=== PATIENT | male | born 1995 | race Two or more races ===

== ENCOUNTER 2019-12-03 17:03 | Inpatient (IN) | payer OTHER ==
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
[2019-12-03] MEDS ORDERED: BISMUTH SUBSALICYLATE 524 MG/30 ML UD PO PRN (17:47)
[2019-12-03] MEDS ORDERED: MAG HYDROX/AL HYDROX/SIMETH 30 ML UNIT-DOSE CUP PO PRN (17:47)
[2019-12-03] MEDS ORDERED: ONDANSETRON *ODT* 4 MG TABLET SL ONE (17:47)
[2019-12-03] MEDS ORDERED: MAGNESIUM CITRATE 300 ML BOTTLE PO PRN (17:47)
[2019-12-03] MEDS ORDERED: IBUPROFEN 400 MG TABLET (FP) PO PRN (17:47)
[2019-12-03] MEDS ORDERED: NICOTINE POLACRILEX 2 MG GUM BUC PRN (17:47)
[2019-12-03] MEDS ORDERED: MAGNESIUM HYDROX 2400MG/30ML ORAL SUSPENSION 30 ML CUP PO PRN (17:47)
[2019-12-03] MEDS ORDERED: ACETAMINOPHEN 325 MG TABLET (FP) PO PRN ×2 (17:47)
[2019-12-03] MEDS ORDERED: MENTHOL/PHENOL 1 EACH UD MM PRN (17:47)
[2019-12-03] MEDS ORDERED: cloNIDine HCL 0.1 MG TABLET PO PRN (17:47)
[2019-12-03 18:04] VITALS: BMI 35.4
[2019-12-03] MEDS ORDERED: METHADONE HCL 10 MG TABLET (FOR DETOX USE ONLY) PO ONE (19:15)
[2019-12-03] MEDS ORDERED: MELATONIN 5 MG TABLETS PO SCH (22:00)
[2019-12-03] MEDS: THIAMINE HCL 100 MG TABLET (FP) PO SCH (23:37)
[2019-12-04] MEDS: hydrOXYzine PAMOATE 25 MG CAPSULE (FP) PO PRN ×2 (05:53→22:16)
[2019-12-04] MEDS: METHOCARBAMOL 500 MG TABLET PO PRN (05:53)
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
--- NOTE | 2019-12-04 09:24 | EKG ---
Test Reason : Blood Pressure : / mmHG Vent. Rate : 056 BPM Atrial Rate : 056 BPM P-R Int : 096 ms QRS Dur : 088 ms QT Int : 358 ms P-R-T Axes : -01 044 043 degrees QTc Int : 345 ms SINUS BRADYCARDIA WITH SHORT WI OTHERWISE NORMAL ECG NO PREVIOUS ECGS AVAILABLE Confirmed by Pawan Mooney MD ([id number]) on 12/04/2019 9:23:39 AM Referred By: Confirmed By:Pawan Mooney MD
[2019-12-04] MEDS ORDERED: METHADONE HCL 5 MG TABLET (FOR DETOX USE ONLY) PO ONE (10:00)
[2019-12-04] MEDS: PRENATAL VITAMINS W/ FOLIC ACID TABLET (FP) PO SCH (10:14)
[2019-12-04] MEDS: NICOTINE 14 MG/24 HOURS TOPICAL PATCH TD SCH (10:14)
[2019-12-04] MEDS ORDERED: PNEUMOCOCCAL 23 VACCINE 0.5 ML VIAL IM ONE (12:00)
[2019-12-04] MEDS ORDERED: PNEUMOC 13-VAL CONJ-DIP CRM/PF 0.5 ML DISP.SYRIN IM ONE (12:00)
[2019-12-04 12:14] LABS: HEMATOCRIT 39.9 % (35.4-49); HEMOGLOBIN 12.6 GM/dL (11.7-16.9); MCH 26.1 pg (25.7-33.7); MCHC 31.6 g/dl (32.0-35.9); MEAN CELL VOLUME 82.6 fl (80-96); MEAN PLT VOLUME 9.2 fl (7.5-11.1); PLATELET COUNT 212 K/MM3 (134-434); RBC 4.83 M/mm3 (4.00-5.60); RDW 17.2 % (11.9-15.9); WHITE BLOOD COUNT 9.4 K/mm3 (4.0-10.0)
[2019-12-04 12:29] LABS: BILIRUBIN,TOTAL 0.8 mg/dL (0.2-1); BLOOD UREA NITROGEN 13.2 mg/dL (7-18); CALCIUM 8.5 mg/dL (8.5-10.1); CREATININE 0.8 mg/dL (0.55-1.3); POTASSIUM 4.5 mmol/L (3.5-5.1); TOT PROT 6.4 g/dl (6.4-8.2)
--- NOTE | 2019-12-04 12:47 | PN ---
BHS COWS - Scale Resting Pulse: 0= [place] 80 or Below Sweatin= No chills or Flushing Restless Observation: 1= Difficult to Sit Still Pupil Size: 0= Normal to Room Light Bone or Joint Aches: 1= Mild Discomfort Runny Nose/ Eye Tearin= Nasal Congestion GI Upset > 30mins: 1= Stomach Cramp Tremor Observation of Outstretched Hands: 2= Slight Tremor Visible Yawning Observation: 1= 1-2x During Session Anxiety or Irritability: 2=Irritable/Anxious Goose Flesh Skin: 0=Smooth Skin COWS Score: 9 BHS Progress Note (SOAP) Subjective: alert,irritable,anxious,interrupted sleep,stutter speech,aching pain Objective: 12/04/19 12:44 Vital Signs Temperature 97.3 F L 12/04/19 08:51 Pulse Rate 61 12/04/19 08:51 Respiratory Rate 18 12/04/19 08:51 Blood Pressure 104/64 12/04/19 08:51 O2 Sat by Pulse Oximetry (%) 98 12/04/19 06:22 12/04/19 12:45 Laboratory Last Values WBC 9.4 K/mm3 (4.0-10.0) 12/04/19 08:30 RBC 4.83 M/mm3 (4.00-5.60) 12/04/19 08:30 Hgb 12.6 GM/dL (11.7-16.9) 12/04/19 08:30 Hct 39.9 % (35.4-49) 12/04/19 08:30 MCV 82.6 fl (80-96) 12/04/19 08:30 MCH 26.1 pg (25.7-33.7) 12/04/19 08:30 MCHC 31.6 g/dl (32.0-35.9) L 12/04/19 08:30 RDW 17.2 % (11.9-15.9) H 12/04/19 08:30 Plt Count 212 K/MM3 (134-434) 12/04/19 08:30 MPV 9.2 fl (7.5-11.1) 12/04/19 08:30 Sodium 142 mmol/L (136-145) 12/04/19 08:30 Potassium 4.5 mmol/L (3.5-5.1) 12/04/19 08:30 Chloride 108 mmol/L (98-107) H 12/04/19 08:30 Carbon Dioxide 27 mmol/L (21-32) 12/04/19 08:30 Anion Gap 7 MMOL/L (8-16) L 12/04/19 08:30 BUN 13.2 mg/dL (7-18) 12/04/19 08:30 Creatinine 0.8 mg/dL (0.55-1.3) 12/04/19 08:30 Est GFR (CKD-EPI)AfAm 144.91 12/04/19 08:30 Est GFR (CKD-EPI)NonAf 125.03 12/04/19 08:30 Random Glucose 88 mg/dL (74-106) 12/04/19 08:30 Calcium 8.5 mg/dL (8.5-10.1) 12/04/19 08:30 Total Bilirubin 0.8 mg/dL (0.2-1) 12/04/19 08:30 AST 14 U/L (15-37) L 12/04/19 08:30 ALT 22 U/L (13-61) 12/04/19 08:30 Alkaline Phosphatase 60 U/L (45-117) 12/04/19 08:30 Total Protein 6.4 g/dl (6.4-8.2) 12/04/19 08:30 Albumin 3.0 g/dl (3.4-5.0) L 12/04/19 08:30 Valproic Acid 39.2 ug/mL (50-100) L 12/04/19 09:00 Assessment: 12/04/19 12:46 withdrawal symptom Plan: continue detox methadone regimen,dr Hull consultation appreciated
[2019-12-04] MEDS: DIVALPROEX NA *ER* EXTEND REL 500 MG TABLET.SA (FP) PO SCH ×2 (13:39→22:18)
[2019-12-04] MEDS: MELATONIN 5 MG TABLETS PO PRN (22:17)
[2019-12-04] MEDS: THIAMINE HCL 100 MG TABLET (FP) PO SCH (22:17)
[2019-12-05] MEDS ORDERED: METHADONE HCL 10 MG TABLET (FOR DETOX USE ONLY) PO ONE (10:00)
[2019-12-05] MEDS: PRENATAL VITAMINS W/ FOLIC ACID TABLET (FP) PO SCH (10:23)
[2019-12-05] MEDS: DIVALPROEX NA *ER* EXTEND REL 500 MG TABLET.SA (FP) PO SCH ×2 (10:23→22:38)
[2019-12-05] MEDS: NICOTINE 14 MG/24 HOURS TOPICAL PATCH TD SCH (10:23)
[2019-12-05] MEDS: METHOCARBAMOL 500 MG TABLET PO PRN (10:25)
--- NOTE | 2019-12-05 13:49 | PN ---
BHS COWS - Scale Resting Pulse: 0= [place] 80 or Below Sweatin= No chills or Flushing Restless Observation: 0= Sits Still Pupil Size: 0= Normal to Room Light Bone or Joint Aches: 1= Mild Discomfort Runny Nose/ Eye Tearin= Nasal Congestion GI Upset > 30mins: 1= Stomach Cramp Tremor Observation of Outstretched Hands: 2= Slight Tremor Visible Yawning Observation: 0= None Anxiety or Irritability: 2=Irritable/Anxious Goose Flesh Skin: 0=Smooth Skin COWS Score: 7 BHS Progress Note (SOAP) Subjective: alert,irritable,anxious,interrupted sleep,tremor,pain in the body and back Objective: 12/05/19 13:48 Vital Signs Temperature 97.3 F L 12/05/19 08:35 Pulse Rate 70 12/05/19 08:35 Respiratory Rate 20 12/05/19 08:35 Blood Pressure 132/83 12/05/19 08:35 O2 Sat by Pulse Oximetry (%) 100 12/05/19 05:18 Assessment: 12/05/19 13:48 withdrawal symptom Plan: continue detox methadon regimen,discharge in am
[2019-12-05] MEDS ORDERED: ALBUTEROL SO4 HFA INHALER IH PRN (13:52)
[2019-12-05] MEDS: THIAMINE HCL 100 MG TABLET (FP) PO SCH (22:38)
[2019-12-05] MEDS: MELATONIN 5 MG TABLETS PO PRN (22:39)
[2019-12-06] MEDS ORDERED: METHADONE HCL 5 MG TABLET (FOR DETOX USE ONLY) PO ONE (06:00)
[2019-12-06 07:15] VITALS: BP 120/62; PULSE 55; TEMP 96.5
[2019-12-06] MEDS: PRENATAL VITAMINS W/ FOLIC ACID TABLET (FP) PO SCH (09:59)
[2019-12-06] MEDS: NICOTINE 14 MG/24 HOURS TOPICAL PATCH TD SCH (09:59)
[2019-12-06] MEDS: DIVALPROEX NA *ER* EXTEND REL 500 MG TABLET.SA (FP) PO SCH (09:59)
--- NOTE | 2019-12-06 10:10 | PN ---
BHS COWS - Scale Resting Pulse: 0= [place] 80 or Below Sweatin= No chills or Flushing Restless Observation: 0= Sits Still Pupil Size: 0= Normal to Room Light Bone or Joint Aches: 0= None Runny Nose/ Eye Tearin= None GI Upset > 30mins: 0= None Tremor Observation of Outstretched Hands: 0= None Yawning Observation: 0= None Anxiety or Irritability: 1=Feels Anxious/Irritable Goose Flesh Skin: 0=Smooth Skin COWS Score: 1 BHS Progress Note (SOAP) Subjective: alert,no complaint Objective: 12/06/19 10:03 Vital Signs Temperature 96.5 F L 12/06/19 05:38 Pulse Rate 55 L 12/06/19 05:38 Respiratory Rate 18 12/06/19 05:38 Blood Pressure 120/62 12/06/19 05:38 O2 Sat by Pulse Oximetry (%) 98 12/06/19 05:38 Assessment: 12/06/19 10:03 detox completed,no withdrawal symptom Plan: stable for discharge today,he will go home and stay with his family,patient declined rehab,stated he will go to work, follow up with out patient program positive direction
--- NOTE | 2019-12-06 10:17 | DS ---
[facility] Detox Discharge Summary Admission Date: 12/03/19 Discharge Date: 12/06/19 - History Present History: Cannabis Dependence, Opioid Dependence Additional Comments: alert,oriented x 3 ambulation on the unit lung clear on auscultation bilaterally abdomen soft,no distension,o pain no tenderness no withdrawal symptom stable for discharge to go home ,he lives with his parent,will go to work patient declined rehab, follow up with after care program as arrangement positive direction total time of discharge is 35 minutes Pertinent Past History: bipolar disorder nicotine dependence asthma - Physical Exam Results Vital Signs: Vital Signs Temperature 96.5 F L 12/06/19 05:38 Pulse Rate 55 L 12/06/19 05:38 Respiratory Rate 18 12/06/19 05:38 Blood Pressure 120/62 12/06/19 05:38 O2 Sat by Pulse Oximetry (%) 98 12/06/19 05:38 Pertinent Admission Physical Exam Findings: withdrawal signs and symptom Laboratory Last Values WBC 9.4 K/mm3 (4.0-10.0) 12/04/19 08:30 RBC 4.83 M/mm3 (4.00-5.60) 12/04/19 08:30 Hgb 12.6 GM/dL (11.7-16.9) 12/04/19 08:30 Hct 39.9 % (35.4-49) 12/04/19 08:30 MCV 82.6 fl (80-96) 12/04/19 08:30 MCH 26.1 pg (25.7-33.7) 12/04/19 08:30 MCHC 31.6 g/dl (32.0-35.9) L 12/04/19 08:30 RDW 17.2 % (11.9-15.9) H 12/04/19 08:30 Plt Count 212 K/MM3 (134-434) 12/04/19 08:30 MPV 9.2 fl (7.5-11.1) 12/04/19 08:30 Sodium 142 mmol/L (136-145) 12/04/19 08:30 Potassium 4.5 mmol/L (3.5-5.1) 12/04/19 08:30 Chloride 108 mmol/L (98-107) H 12/04/19 08:30 Carbon Dioxide 27 mmol/L (21-32) 12/04/19 08:30 Anion Gap 7 MMOL/L (8-16) L 12/04/19 08:30 BUN 13.2 mg/dL (7-18) 12/04/19 08:30 Creatinine 0.8 mg/dL (0.55-1.3) 12/04/19 08:30 Est GFR (CKD-EPI)AfAm 144.91 12/04/19 08:30 Est GFR (CKD-EPI)NonAf 125.03 12/04/19 08:30 Random Glucose 88 mg/dL (74-106) 12/04/19 08:30 Calcium 8.5 mg/dL (8.5-10.1) 12/04/19 08:30 Total Bilirubin 0.8 mg/dL (0.2-1) 12/04/19 08:30 AST 14 U/L (15-37) L 12/04/19 08:30 ALT 22 U/L (13-61) 12/04/19 08:30 Alkaline Phosphatase 60 U/L (45-117) 12/04/19 08:30 Total Protein 6.4 g/dl (6.4-8.2) 12/04/19 08:30 Albumin 3.0 g/dl (3.4-5.0) L 12/04/19 08:30 Valproic Acid 39.2 ug/mL (50-100) L 12/04/19 09:00 Syphilis Serology Non-reactive (NONREACTIVE) 12/04/19 08:30 COVID-19 (JANE) Not detected (Not Detected) 12/03/19 19:33 Vital Signs Temperature 96.5 F L 12/06/19 05:38 Pulse Rate 55 L 12/06/19 05:38 Respiratory Rate 18 12/06/19 05:38 Blood Pressure 120/62 12/06/19 05:38 O2 Sat by Pulse Oximetry (%) 98 12/06/19 05:38 - Treatment Hospital Course: Detox Protocol Followed, Detoxed Safely, Responded well, Discharged Condition Good Patient has Accepted a Rehab Referral to: declined - Medication Discharge Medications: Ambulatory Orders Alprazolam [Xanax] 1 mg PO BID PRN 12/03/19 Divalproex Sodium [Depakote ER] 500 mg PO BID 12/03/19 - Diagnosis (1) Cannabis dependence Current Visit: Yes Status: Acute (2) Opioid dependence with withdrawal Current Visit: Yes Status: Acute (3) Asthma Current Visit: Yes Status: Chronic Qualifiers: Asthma severity: mild Asthma persistence: intermittent (4) Bipolar disorder Current Visit: Yes Status: Chronic Qualifiers: Active/Remission status: currently active Current episode severity: unspecified - AMA Did Patient Leave Against Medical Advice: No
--- NOTE | 2019-12-06 10:20 | PN ---
DAVID Progress Note Note: addendum patient has his medications at home
== END 2019-12-06 10:05 | disposition home or self-care (01) | DRG 773 ==
LOC: YASAS 17:03 → Y6N 18:53
PROVIDERS: ADMIT Allergy & Immunology; ATTEND Allergy & Immunology
PROC: HZ2ZZZZ Detoxification Services for Substance Abuse Treatment (ICD-10-PCS; principal; 2019-12-03)
DX: F11.23 Opioid dependence with withdrawal (principal); F12.20 Cannabis dependence, uncomplicated; F17.210 Nicotine dependence, cigarettes, uncomplicated; F31.9 Bipolar disorder, unspecified; F19.280 Other psychoactive substance dependence with psychoactive substance-induced anxiety disorder; J45.20 Mild intermittent asthma, uncomplicated; Z62.810 Personal history of physical and sexual abuse in childhood
CPT/HCPCS: 36415; 80053; 80164; 85027; 86780; 90732; 93005; 93010; G0009; U0003

== ENCOUNTER 2020-04-13 12:49 | Inpatient (IN) | payer OTHER ==
[2020-04-13 16:49] VITALS: BMI 74.9
[2020-04-13] MEDS ORDERED: ACETAMINOPHEN 325 MG TABLET (FP) PO PRN ×2 (16:49)
[2020-04-13] MEDS ORDERED: chlordiazePOXIDE HCL 25 MG CAPSULE PO PRN (16:49)
[2020-04-13] MEDS ORDERED: BISMUTH SUBSALICYLATE 524 MG/30 ML UD PO PRN (16:49)
[2020-04-13] MEDS ORDERED: METHADONE HCL 10 MG TABLET (FOR DETOX USE ONLY) PO ONE (16:49)
[2020-04-13] MEDS ORDERED: cloNIDine HCL 0.1 MG TABLET PO PRN (16:49)
[2020-04-13] MEDS ORDERED: MAGNESIUM HYDROX 2400MG/30ML ORAL SUSPENSION 30 ML CUP PO PRN (16:49)
[2020-04-13] MEDS ORDERED: NICOTINE POLACRILEX 2 MG GUM BUC PRN (16:49)
[2020-04-13] MEDS ORDERED: MENTHOL/PHENOL 1 EACH UD MM PRN (16:49)
[2020-04-13] MEDS ORDERED: ONDANSETRON *ODT* 4 MG TABLET SL PRN (16:49)
[2020-04-13] MEDS ORDERED: MAG HYDROX/AL HYDROX/SIMETH 30 ML UNIT-DOSE CUP PO PRN (16:49)
[2020-04-13] MEDS ORDERED: MAGNESIUM CITRATE 300 ML BOTTLE PO PRN (16:49)
[2020-04-13] MEDS: NICOTINE 21 MG/24 HOURS TOPICAL PATCH TD SCH (18:28)
[2020-04-13] MEDS: chlordiazePOXIDE HCL 25 MG CAPSULE PO SCH ×2 (18:28→22:15)
[2020-04-13] MEDS: hydrOXYzine PAMOATE 25 MG CAPSULE (FP) PO SCH ×2 (18:31→22:14)
[2020-04-13] MEDS: METHOCARBAMOL 500 MG TABLET PO PRN (18:33)
[2020-04-13] MEDS ORDERED: ALBUTEROL SO4 HFA INHALER IH ONE (18:35)
[2020-04-13] MEDS ORDERED: ALBUTEROL SO4 HFA INHALER IH PRN (18:41)
[2020-04-13] MEDS ORDERED: MELATONIN 5 MG TABLETS PO SCH (22:00)
[2020-04-13] MEDS: THIAMINE HCL 100 MG TABLET (FP) PO SCH (22:14)
[2020-04-14] MEDS: chlordiazePOXIDE HCL 25 MG CAPSULE PO SCH ×4 (05:44→22:09)
[2020-04-14] MEDS: hydrOXYzine PAMOATE 25 MG CAPSULE (FP) PO SCH ×5 (05:44→22:09)
[2020-04-14] MEDS ORDERED: METHADONE HCL 10 MG TABLET (FOR DETOX USE ONLY) ONE (08:44)
[2020-04-14] MEDS ORDERED: METHADONE HCL 5 MG TABLET (FOR DETOX USE ONLY) ONE (08:44)
[2020-04-14] MEDS ORDERED: METHADONE (DETOX) 20 MG, METHADONE (DETOX) 5 MG PO ONE (10:00)
[2020-04-14] MEDS: NICOTINE 21 MG/24 HOURS TOPICAL PATCH TD SCH (10:26)
[2020-04-14] MEDS: PRENATAL VITAMINS W/ FOLIC ACID TABLET (FP) PO SCH (10:26)
[2020-04-14] MEDS: METHOCARBAMOL 500 MG TABLET PO PRN (10:27)
[2020-04-14] MEDS: DIVALPROEX SODIUM 500 MG TABLET E.C. PO SCH ×2 (10:27→22:09)
[2020-04-14 10:54] LABS: HEMATOCRIT 40.3 % (35.4-49); HEMOGLOBIN 12.9 GM/dL (11.7-16.9); MCH 25.8 pg (25.7-33.7); MCHC 32.1 g/dl (32.0-35.9); MEAN CELL VOLUME 80.3 fl (80-96); MEAN PLT VOLUME 9.5 fl (7.5-11.1); PLATELET COUNT 305 K/MM3 (134-434); RBC 5.01 M/mm3 (4.00-5.60); RDW 16.3 % (11.9-15.9); WHITE BLOOD COUNT 7.7 K/mm3 (4.0-10.0)
[2020-04-14 10:56] LABS: POTASSIUM 4.3 mmol/L (3.5-5.1)
[2020-04-14 10:59] LABS: CALCIUM 9.5 mg/dL (8.5-10.1)
[2020-04-14 11:00] LABS: ALBUMIN 3.4 g/dl (3.4-5.0)
[2020-04-14 11:03] LABS: CREATININE 0.8 mg/dL (0.55-1.3)
[2020-04-14 11:04] LABS: BILIRUBIN,TOTAL 0.8 mg/dL (0.2-1); TOT PROT 6.8 g/dl (6.4-8.2)
[2020-04-14] MEDS: THIAMINE HCL 100 MG TABLET (FP) PO SCH (22:09)
[2020-04-14] MEDS: MELATONIN 5 MG TABLETS PO PRN (22:10)
[2020-04-15] MEDS: chlordiazePOXIDE HCL 25 MG CAPSULE PO SCH ×4 (05:46→22:10)
[2020-04-15] MEDS: hydrOXYzine PAMOATE 25 MG CAPSULE (FP) PO SCH ×5 (05:46→22:10)
[2020-04-15] MEDS ORDERED: METHADONE HCL 10 MG TABLET (FOR DETOX USE ONLY) PO ONE (10:00)
[2020-04-15] MEDS: METHOCARBAMOL 500 MG TABLET PO PRN (10:19)
[2020-04-15] MEDS: DIVALPROEX SODIUM 500 MG TABLET E.C. PO SCH ×2 (10:19→22:10)
[2020-04-15] MEDS: PRENATAL VITAMINS W/ FOLIC ACID TABLET (FP) PO SCH (10:19)
[2020-04-15] MEDS: NICOTINE 21 MG/24 HOURS TOPICAL PATCH TD SCH (10:20)
[2020-04-15] MEDS: IBUPROFEN 400 MG TABLET (FP) PO PRN (15:02)
[2020-04-15] MEDS: THIAMINE HCL 100 MG TABLET (FP) PO SCH (22:10)
[2020-04-15] MEDS: MELATONIN 5 MG TABLETS PO PRN (22:10)
[2020-04-16] MEDS ORDERED: chlordiazePOXIDE HCL 10 MG CAPSULE PO PRN
[2020-04-16] MEDS: chlordiazePOXIDE HCL 10 MG CAPSULE PO SCH ×4 (05:27→22:07)
[2020-04-16] MEDS: hydrOXYzine PAMOATE 25 MG CAPSULE (FP) PO SCH ×5 (05:27→22:07)
[2020-04-16] MEDS ORDERED: METHADONE HCL 10 MG TABLET (FOR DETOX USE ONLY) ONE (08:30)
[2020-04-16] MEDS ORDERED: METHADONE HCL 5 MG TABLET (FOR DETOX USE ONLY) ONE (08:30)
[2020-04-16] MEDS ORDERED: METHADONE (DETOX) 10 MG, METHADONE (DETOX) 5 MG PO ONE (10:00)
[2020-04-16] MEDS: PRENATAL VITAMINS W/ FOLIC ACID TABLET (FP) PO SCH (10:20)
[2020-04-16] MEDS: DIVALPROEX SODIUM 500 MG TABLET E.C. PO SCH ×2 (10:21→22:07)
[2020-04-16] MEDS: METHOCARBAMOL 500 MG TABLET PO PRN (10:21)
[2020-04-16] MEDS: NICOTINE 21 MG/24 HOURS TOPICAL PATCH TD SCH (10:22)
[2020-04-16] MEDS: LIDOCAINE 5% TOPICAL PATCH TP SCH (11:53)
[2020-04-16] MEDS ORDERED: FLU VACCINE (FLULAVAL) PF 60 MCG/0.5 ML SYRINGE 2020-2021 IM ONE (12:00)
[2020-04-16] MEDS: THIAMINE HCL 100 MG TABLET (FP) PO SCH (22:07)
[2020-04-16] MEDS: LIDOCAINE PATCH REMOVAL MC SCH (22:07)
[2020-04-17] MEDS: hydrOXYzine PAMOATE 25 MG CAPSULE (FP) PO SCH ×5 (05:33→22:30)
[2020-04-17] MEDS: chlordiazePOXIDE HCL 10 MG CAPSULE PO SCH ×2 (05:33→17:14)
[2020-04-17] MEDS: PRENATAL VITAMINS W/ FOLIC ACID TABLET (FP) PO SCH (09:35)
[2020-04-17] MEDS: LIDOCAINE 5% TOPICAL PATCH TP SCH (09:36)
[2020-04-17] MEDS: METHOCARBAMOL 500 MG TABLET PO PRN ×2 (09:36→22:30)
[2020-04-17] MEDS: DIVALPROEX SODIUM 500 MG TABLET E.C. PO SCH ×2 (09:36→22:30)
[2020-04-17] MEDS: NICOTINE 21 MG/24 HOURS TOPICAL PATCH TD SCH (09:36)
[2020-04-17] MEDS ORDERED: METHADONE HCL 10 MG TABLET (FOR DETOX USE ONLY) PO ONE (10:00)
[2020-04-17] MEDS: IBUPROFEN 400 MG TABLET (FP) PO PRN (17:37)
[2020-04-17 21:25] VITALS: TEMP 97.5
[2020-04-17] MEDS: LIDOCAINE PATCH REMOVAL MC SCH (22:30)
[2020-04-17] MEDS: THIAMINE HCL 100 MG TABLET (FP) PO SCH (22:31)
[2020-04-18] MEDS ORDERED: chlordiazePOXIDE HCL 10 MG CAPSULE PO ONE (05:00)
[2020-04-18] MEDS: hydrOXYzine PAMOATE 25 MG CAPSULE (FP) PO SCH (05:44)
[2020-04-18] MEDS ORDERED: METHADONE HCL 5 MG TABLET (FOR DETOX USE ONLY) PO ONE (06:00)
[2020-04-18 09:06] VITALS: BP 111/76; PULSE 85
[2020-04-20 17:48] LABS: HIV INTERPRETATION NEGATIVE (NEGATIVE)
== END 2020-04-18 08:45 | disposition other institution (70) | DRG 773 ==
LOC: YASAS 12:49 → Y3N 17:30
PROVIDERS: ADMIT Allergy & Immunology; ATTEND Allergy & Immunology
PROC: HZ2ZZZZ Detoxification Services for Substance Abuse Treatment (ICD-10-PCS; principal; 2020-04-13)
DX: F11.23 Opioid dependence with withdrawal (principal); F10.230 Alcohol dependence with withdrawal, uncomplicated; F13.20 Sedative, hypnotic or anxiolytic dependence, uncomplicated; F12.20 Cannabis dependence, uncomplicated; F17.210 Nicotine dependence, cigarettes, uncomplicated; F19.282 Other psychoactive substance dependence with psychoactive substance-induced sleep disorder; F19.280 Other psychoactive substance dependence with psychoactive substance-induced anxiety disorder; F31.9 Bipolar disorder, unspecified; F41.9 Anxiety disorder, unspecified; F98.5 Adult onset fluency disorder; Z62.810 Personal history of physical and sexual abuse in childhood
CPT/HCPCS: 36415; 80053; 80164; 85027; 86780; 87389; C9803; G0008; Q2036; U0003

== ENCOUNTER 2021-01-16 02:14 | Emergency (ER) | payer OTHER ==
[2021-01-16 02:34] VITALS: BP 132/75; PULSE 88; TEMP 98.5; BMI 28.3
== END 2021-01-16 02:37 | disposition left against medical advice (07) ==
LOC: JER 02:14
DX: F11.23 Opioid dependence with withdrawal (principal)
CPT/HCPCS: 99281-25

== ENCOUNTER 2021-01-17 09:09 | Inpatient (IN) | payer OTHER ==
[2021-01-17 09:28] VITALS: BMI 33.6
[2021-01-17] MEDS ORDERED: MAGNESIUM CITRATE 300 ML BOTTLE PO PRN (11:09)
[2021-01-17] MEDS ORDERED: BISMUTH SUBSALICYLATE 524 MG/30 ML PO PRN (11:09)
[2021-01-17] MEDS ORDERED: MENTHOL/PHENOL 1 EACH UD MM PRN (11:09)
[2021-01-17] MEDS ORDERED: diazePAM 5 MG TABLET PO PRN (11:09)
[2021-01-17] MEDS ORDERED: ACETAMINOPHEN 325 MG TABLET (FP) PO PRN ×2 (11:09)
[2021-01-17] MEDS ORDERED: cloNIDine HCL 0.1 MG TABLET PO PRN (11:09)
[2021-01-17] MEDS ORDERED: MAGNESIUM HYDROX 2400MG/30ML ORAL SUSPENSION 30 ML CUP PO PRN (11:09)
[2021-01-17] MEDS ORDERED: MAG HYDROX/AL HYDROX/SIMETH 30 ML UNIT-DOSE CUP PO PRN (11:09)
[2021-01-17] MEDS ORDERED: ALBUTEROL SO4 HFA INHALER IH PRN (11:13)
[2021-01-17] MEDS ORDERED: methaDONE HCL 10 MG TABLET (FOR DETOX USE ONLY) PO ONE (12:00)
[2021-01-17] MEDS ORDERED: FLU VACC QS2021-22(6MOS UP)/PF 60 MCG/0.5 ML SYRINGE IM ONE (14:04)
[2021-01-17] MEDS: METHOCARBAMOL 500 MG TABLET PO PRN (15:53)
[2021-01-17] MEDS: diazePAM 5 MG TABLET PO SCH ×2 (17:57→22:10)
[2021-01-17] MEDS ORDERED: MELATONIN 5 MG TABLETS PO SCH (22:00)
[2021-01-17] MEDS: THIAMINE HCL 100 MG TABLET (FP) PO SCH (22:10)
[2021-01-18] MEDS: diazePAM 5 MG TABLET PO SCH ×4 (07:31→22:12)
[2021-01-18] MEDS ORDERED: methaDONE HCL 10 MG TABLET (FOR DETOX USE ONLY) ONE (08:41)
[2021-01-18] MEDS ORDERED: FLU VACC QS2021-22(6MOS UP)/PF 60 MCG/0.5 ML SYRINGE IM ONE (10:00)
[2021-01-18] MEDS: NICOTINE 14 MG/24 HOURS TOPICAL PATCH TD SCH (10:16)
[2021-01-18] MEDS: DIVALPROEX SODIUM 500 MG TABLET E.C. PO SCH ×2 (10:16→22:13)
[2021-01-18] MEDS: PRENATAL VITAMINS W/ FOLIC ACID TABLET (FP) PO SCH (10:17)
[2021-01-18 10:36] LABS: ALBUMIN 3.5 g/dl (3.4-5.0); CALCIUM 9.5 mg/dL (8.5-10.1); HEMATOCRIT 40.2 % (35.4-49); HEMOGLOBIN 12.9 GM/dL (11.7-16.9); MCH 24.9 pg (25.7-33.7); MEAN CELL VOLUME 77.6 fl (80-96); MEAN PLT VOLUME 8.9 fl (7.5-11.1); PLATELET COUNT 318 10^3/uL (134-434); RBC 5.18 M/mm3 (4.00-5.60); RDW 15.4 % (11.9-15.9); WHITE BLOOD COUNT 7.9 K/mm3 (4.0-10.0)
[2021-01-18 10:37] LABS: BLOOD UREA NITROGEN 11.2 mg/dL (7-18)
[2021-01-18 10:40] LABS: CREATININE 0.6 mg/dL (0.55-1.3)
[2021-01-18 10:41] LABS: BILIRUBIN,TOTAL 0.3 mg/dL (0.2-1); TOT PROT 7.3 g/dl (6.4-8.2)
[2021-01-18 11:47] LABS: HIV INTERPRETATION NEGATIVE (NEGATIVE)
[2021-01-18] MEDS: METHOCARBAMOL 500 MG TABLET PO PRN (17:22)
[2021-01-18] MEDS: PRAZOSIN HCL 1 MG CAPSULE PO SCH (22:13)
[2021-01-18] MEDS: QUEtiapine FUMARATE 50 MG TABLET PO SCH (22:13)
[2021-01-18] MEDS: THIAMINE HCL 100 MG TABLET (FP) PO SCH (22:13)
[2021-01-19] MEDS: diazePAM 5 MG TABLET PO SCH ×3 (05:33→22:05)
[2021-01-19] MEDS: METHOCARBAMOL 500 MG TABLET PO PRN (05:34)
[2021-01-19] MEDS ORDERED: methaDONE HCL 10 MG TABLET (FOR DETOX USE ONLY) PO ONE (10:00)
[2021-01-19] MEDS: NICOTINE 14 MG/24 HOURS TOPICAL PATCH TD SCH (10:26)
[2021-01-19] MEDS: DIVALPROEX SODIUM 500 MG TABLET E.C. PO SCH ×2 (10:26→22:04)
[2021-01-19] MEDS: PRENATAL VITAMINS W/ FOLIC ACID TABLET (FP) PO SCH (10:26)
[2021-01-19] MEDS: IBUPROFEN 400 MG TABLET (FP) PO PRN (15:26)
[2021-01-19] MEDS: PRAZOSIN HCL 1 MG CAPSULE PO SCH (22:04)
[2021-01-19] MEDS: QUEtiapine FUMARATE 50 MG TABLET PO SCH (22:05)
[2021-01-19] MEDS: THIAMINE HCL 100 MG TABLET (FP) PO SCH (22:05)
[2021-01-19] MEDS: NICOTINE 10 MG CARTRIDGE (INHALER) IH PRN (22:30)
[2021-01-20] MEDS ORDERED: diazePAM 5 MG TABLET PO SCH (06:00)
[2021-01-20] MEDS ORDERED: methaDONE HCL 10 MG TABLET (FOR DETOX USE ONLY) ONE (09:08)
[2021-01-20] MEDS: DIVALPROEX SODIUM 500 MG TABLET E.C. PO SCH (10:29)
[2021-01-20] MEDS: PRENATAL VITAMINS W/ FOLIC ACID TABLET (FP) PO SCH (10:29)
[2021-01-20] MEDS: NICOTINE 14 MG/24 HOURS TOPICAL PATCH TD SCH (10:31)
[2021-01-20] MEDS: IBUPROFEN 400 MG TABLET (FP) PO PRN (13:06)
[2021-01-20] MEDS: METHOCARBAMOL 500 MG TABLET PO PRN (14:24)
[2021-01-20] MEDS: NICOTINE 10 MG CARTRIDGE (INHALER) IH PRN (14:26)
[2021-01-20 17:54] VITALS: BP 105/88; PULSE 106; TEMP 96.8
[2021-01-21] MEDS ORDERED: diazePAM 5 MG TABLET PO ONE (06:00)
[2021-01-21] MEDS ORDERED: methaDONE HCL 10 MG TABLET (FOR DETOX USE ONLY) PO ONE (10:00)
== END 2021-01-20 16:54 | disposition home or self-care (01) | DRG 773 ==
LOC: YASAS 09:09 → Y3N 14:56
PROVIDERS: ADMIT Allergy & Immunology; ATTEND Allergy & Immunology
PROC: HZ2ZZZZ Detoxification Services for Substance Abuse Treatment (ICD-10-PCS; principal; 2021-01-17)
DX: F11.23 Opioid dependence with withdrawal (principal); F10.230 Alcohol dependence with withdrawal, uncomplicated; F13.20 Sedative, hypnotic or anxiolytic dependence, uncomplicated; F12.20 Cannabis dependence, uncomplicated; F17.210 Nicotine dependence, cigarettes, uncomplicated; F31.9 Bipolar disorder, unspecified; F19.282 Other psychoactive substance dependence with psychoactive substance-induced sleep disorder; F41.9 Anxiety disorder, unspecified; F43.10 Post-traumatic stress disorder, unspecified; J45.20 Mild intermittent asthma, uncomplicated; Z62.810 Personal history of physical and sexual abuse in childhood; Z56.0 Unemployment, unspecified
CPT/HCPCS: 36415; 80053; 80164; 85027; 86780; 87389; 90686; 90853; 93005; 93010; 99281-25; C9803; G0008; T1023; U0003; U0005

== ENCOUNTER 2021-01-29 23:08 | Emergency (ER) | payer OTHER ==
[2021-01-29 23:14] VITALS: BMI 33.8
[2021-01-29] MEDS ORDERED: cloNIDine HCL 0.1 MG TABLET PO ONE (23:35)
[2021-01-29] MEDS ORDERED: ONDANSETRON 4 MG TABLET PO ONE (23:35)
[2021-01-29] MEDS ORDERED: ACETAMINOPHEN 500 MG TABLET (FP) PO ONE ×2 (23:35→23:58)
[2021-01-29] MEDS ORDERED: cloNIDine HCL 0.1 MG TABLET ONE (23:57)
[2021-01-29] MEDS ORDERED: ONDANSETRON *ODT* 4 MG TABLET ONE (23:58)
[2021-01-30] MEDS ORDERED: ACETAMINOPHEN 325 MG TABLET (FP) ONE
[2021-01-30 05:51] VITALS: BP 92/60; PULSE 67; TEMP 97
== END 2021-01-30 08:00 | disposition home or self-care (01) ==
LOC: JER 23:08
DX: F11.10 Opioid abuse, uncomplicated (principal)
CPT/HCPCS: 99283-25; J0735

== ENCOUNTER 2021-01-30 08:58 | Inpatient (IN) | payer OTHER ==
[2021-01-30] MEDS ORDERED: ONDANSETRON *ODT* 4 MG TABLET SL PRN (11:54)
[2021-01-30] MEDS ORDERED: MAG HYDROX/AL HYDROX/SIMETH 30 ML UNIT-DOSE CUP PO PRN (11:54)
[2021-01-30] MEDS ORDERED: BISMUTH SUBSALICYLATE 524 MG/30 ML PO PRN (11:54)
[2021-01-30] MEDS ORDERED: LORazepam 1 MG TABLET PO PRN (11:54)
[2021-01-30] MEDS ORDERED: MAGNESIUM HYDROX 2400MG/30ML ORAL SUSPENSION 30 ML CUP PO PRN (11:54)
[2021-01-30] MEDS ORDERED: MENTHOL/PHENOL 1 EACH UD MM PRN (11:54)
[2021-01-30] MEDS ORDERED: methaDONE HCL 10 MG TABLET (FOR DETOX USE ONLY) PO ONE ×2 (11:54→19:45)
[2021-01-30] MEDS ORDERED: cloNIDine HCL 0.1 MG TABLET PO PRN (11:54)
[2021-01-30] MEDS ORDERED: ACETAMINOPHEN 325 MG TABLET (FP) PO PRN ×2 (11:54)
[2021-01-30] MEDS ORDERED: IBUPROFEN 400 MG TABLET (FP) PO PRN (11:54)
[2021-01-30] MEDS ORDERED: NICOTINE 10 MG CARTRIDGE (INHALER) IH PRN (11:54)
[2021-01-30] MEDS ORDERED: LORazepam 2 MG TABLET PO ONE (11:54)
[2021-01-30] MEDS ORDERED: MAGNESIUM CITRATE 300 ML BOTTLE PO PRN (11:54)
[2021-01-30] MEDS ORDERED: ALBUTEROL SO4 HFA INHALER IH PRN (11:58)
[2021-01-30] MEDS ORDERED: DIVALPROEX NA *ER* EXTEND REL 500 MG TABLET.SA (FP) PO ONE (12:00)
[2021-01-30] MEDS ORDERED: PRAZOSIN HCL 2 MG CAPSULE PO ONE (12:00)
[2021-01-30 12:12] VITALS: BMI 35.0
[2021-01-30] MEDS: LORazepam 2 MG TABLET PO SCH ×2 (19:42→22:12)
[2021-01-30] MEDS: NICOTINE 21 MG/24 HOURS TOPICAL PATCH TD SCH (19:50)
[2021-01-30] MEDS: MELATONIN 5 MG TABLETS PO SCH (22:11)
[2021-01-30] MEDS: THIAMINE HCL 100 MG TABLET (FP) PO SCH (22:11)
[2021-01-30] MEDS: METHOCARBAMOL 500 MG TABLET PO PRN (22:13)
[2021-01-31] MEDS: LORazepam 2 MG TABLET PO SCH ×4 (04:58→22:09)
[2021-01-31] MEDS ORDERED: methaDONE HCL 10 MG TABLET (FOR DETOX USE ONLY) ONE (08:49)
[2021-01-31] MEDS ORDERED: hydrOXYzine PAMOATE 25 MG CAPSULE (FP) PO PRN (09:19)
[2021-01-31] MEDS: PRENATAL VITAMINS W/ FOLIC ACID TABLET (FP) PO SCH (10:29)
[2021-01-31] MEDS: DIVALPROEX SODIUM 500 MG TABLET E.C. PO SCH ×2 (10:30→22:09)
[2021-01-31] MEDS: NICOTINE 21 MG/24 HOURS TOPICAL PATCH TD SCH (10:32)
[2021-01-31] MEDS: METHOCARBAMOL 500 MG TABLET PO PRN (12:12)
[2021-01-31] MEDS: PRAZOSIN HCL 1 MG CAPSULE PO SCH (22:09)
[2021-01-31] MEDS: MELATONIN 5 MG TABLETS PO SCH (22:09)
[2021-01-31] MEDS: THIAMINE HCL 100 MG TABLET (FP) PO SCH (22:09)
[2021-02-01] MEDS: METHOCARBAMOL 500 MG TABLET PO PRN ×3 (06:03→17:34)
[2021-02-01] MEDS: LORazepam 1 MG TABLET PO SCH ×4 (06:03→22:13)
[2021-02-01] MEDS ORDERED: methaDONE HCL 10 MG TABLET (FOR DETOX USE ONLY) PO ONE (10:00)
[2021-02-01] MEDS: PRENATAL VITAMINS W/ FOLIC ACID TABLET (FP) PO SCH (10:13)
[2021-02-01] MEDS: DIVALPROEX SODIUM 500 MG TABLET E.C. PO SCH ×2 (10:13→22:14)
[2021-02-01] MEDS: NICOTINE 21 MG/24 HOURS TOPICAL PATCH TD SCH (10:15)
[2021-02-01 12:10] LABS: HEMATOCRIT 37.8 % (35.4-49); HEMOGLOBIN 12.5 GM/dL (11.7-16.9); MCH 25.2 pg (25.7-33.7); MEAN CELL VOLUME 76.5 fl (80-96); MEAN PLT VOLUME 8.6 fl (7.5-11.1); PLATELET COUNT 293 10^3/uL (134-434); RBC 4.94 M/mm3 (4.00-5.60); RDW 15.6 % (11.9-15.9); WHITE BLOOD COUNT 8.9 K/mm3 (4.0-10.0)
[2021-02-01 12:11] LABS: BLOOD UREA NITROGEN 16.1 mg/dL (7-18); CALCIUM 8.6 mg/dL (8.5-10.1)
[2021-02-01 12:14] LABS: CREATININE 0.7 mg/dL (0.55-1.3)
[2021-02-01 12:15] LABS: BILIRUBIN,TOTAL 0.2 mg/dL (0.2-1); TOT PROT 6.9 g/dl (6.4-8.2)
[2021-02-01] MEDS: THIAMINE HCL 100 MG TABLET (FP) PO SCH (22:14)
[2021-02-01] MEDS: PRAZOSIN HCL 1 MG CAPSULE PO SCH (22:14)
[2021-02-01] MEDS: MELATONIN 5 MG TABLETS PO SCH (22:14)
[2021-02-02] MEDS ORDERED: LORazepam 0.5 MG TABLET PO PRN
[2021-02-02] MEDS: LORazepam 0.5 MG TABLET PO SCH ×2 (05:52→10:20)
[2021-02-02] MEDS ORDERED: methaDONE HCL 10 MG TABLET (FOR DETOX USE ONLY) ONE (09:25)
[2021-02-02 09:31] VITALS: TEMP 96.8
[2021-02-02] MEDS: DIVALPROEX SODIUM 500 MG TABLET E.C. PO SCH (10:19)
[2021-02-02] MEDS: NICOTINE 21 MG/24 HOURS TOPICAL PATCH TD SCH (10:19)
[2021-02-02] MEDS: PRENATAL VITAMINS W/ FOLIC ACID TABLET (FP) PO SCH (10:20)
[2021-02-02 13:25] VITALS: BP 119/81; PULSE 89
[2021-02-03] MEDS ORDERED: LORazepam 0.5 MG TABLET PO ONE (05:00)
[2021-02-03] MEDS ORDERED: methaDONE HCL 10 MG TABLET (FOR DETOX USE ONLY) PO ONE (10:00)
== END 2021-02-02 13:03 | disposition home or self-care (01) | DRG 773 ==
LOC: YASAS 08:58 → Y3N 18:06
PROVIDERS: ADMIT Allergy & Immunology; ATTEND Allergy & Immunology
PROC: HZ2ZZZZ Detoxification Services for Substance Abuse Treatment (ICD-10-PCS; principal; 2021-01-30)
DX: F11.23 Opioid dependence with withdrawal (principal); F10.230 Alcohol dependence with withdrawal, uncomplicated; F13.230 Sedative, hypnotic or anxiolytic dependence with withdrawal, uncomplicated; F12.20 Cannabis dependence, uncomplicated; F17.213 Nicotine dependence, cigarettes, with withdrawal; F31.9 Bipolar disorder, unspecified; F43.10 Post-traumatic stress disorder, unspecified; F19.280 Other psychoactive substance dependence with psychoactive substance-induced anxiety disorder; F19.282 Other psychoactive substance dependence with psychoactive substance-induced sleep disorder; J45.20 Mild intermittent asthma, uncomplicated; Z62.810 Personal history of physical and sexual abuse in childhood; Z56.0 Unemployment, unspecified
CPT/HCPCS: 36415; 80053; 80164; 85027; 86780; C9803; T1023-GT; U0003; U0005

== ENCOUNTER 2021-05-04 10:42 | Inpatient (IN) | payer OTHER ==
[2021-05-04] MEDS ORDERED: ONDANSETRON *ODT* 4 MG TABLET SL PRN (10:58)
[2021-05-04] MEDS ORDERED: MAG HYDROX/AL HYDROX/SIMETH 30 ML UNIT-DOSE CUP PO PRN (10:58)
[2021-05-04] MEDS ORDERED: ACETAMINOPHEN 325 MG TABLET (FP) PO PRN ×2 (10:58)
[2021-05-04] MEDS ORDERED: BISMUTH SUBSALICYLATE 262 MG/15 ML BTL PO PRN (10:58)
[2021-05-04] MEDS ORDERED: cloNIDine HCL 0.1 MG TABLET PO PRN (10:58)
[2021-05-04] MEDS ORDERED: MAGNESIUM HYDROX 2400MG/30ML ORAL SUSPENSION 30 ML CUP PO PRN (10:58)
[2021-05-04] MEDS ORDERED: METHOCARBAMOL 500 MG TABLET PO PRN (10:58)
[2021-05-04] MEDS ORDERED: MENTHOL/PHENOL 1 EACH UD MM PRN (10:58)
[2021-05-04] MEDS ORDERED: MAGNESIUM CITRATE 300 ML BOTTLE PO PRN (10:58)
[2021-05-04] MEDS ORDERED: BUPRENORPHINE HCL 150 MCG, BUPRENORPHINE HCL 75 MCG BC ONE (10:58)
[2021-05-04] MEDS ORDERED: IBUPROFEN 400 MG TABLET (FP) PO PRN (10:58)
[2021-05-04] MEDS ORDERED: NICOTINE 10 MG CARTRIDGE (INHALER) IH PRN (10:58)
[2021-05-04] MEDS ORDERED: ALBUTEROL SO4 HFA INHALER IH PRN (11:01)
[2021-05-04 11:20] VITALS: BMI 36.5
[2021-05-04] MEDS ORDERED: BUPRENORPHINE HCL 75 MCG FILM BC ONE (13:42)
[2021-05-04] MEDS ORDERED: BUPRENORPHINE HCL 150 MCG FILM BC ONE (13:42)
[2021-05-04] MEDS: hydrOXYzine PAMOATE 25 MG CAPSULE (FP) PO SCH ×3 (13:46→22:34)
[2021-05-04] MEDS: PRENATAL VITAMINS W/ FOLIC ACID TABLET (FP) PO SCH (13:46)
[2021-05-04] MEDS: NICOTINE 14 MG/24 HOURS TOPICAL PATCH TD SCH (13:47)
[2021-05-04 15:32] LABS: HEMATOCRIT 43.5 % (35.4-49); HEMOGLOBIN 13.9 GM/dL (11.7-16.9); MCH 24.2 pg (25.7-33.7); MEAN CELL VOLUME 75.7 fl (80-96); MEAN PLT VOLUME 8.3 fl (7.5-11.1); PLATELET COUNT 334 10^3/uL (134-434); RBC 5.74 M/mm3 (4.00-5.60); RDW 15.9 % (11.9-15.9); WHITE BLOOD COUNT 8.1 K/mm3 (4.0-10.0)
[2021-05-04 15:45] LABS: ALBUMIN 3.9 g/dl (3.4-5.0); BLOOD UREA NITROGEN 10.7 mg/dL (7-18); CALCIUM 9.5 mg/dL (8.5-10.1)
[2021-05-04 15:49] LABS: BILIRUBIN,TOTAL 0.3 mg/dL (0.2-1); CREATININE 0.8 mg/dL (0.55-1.3); TOT PROT 7.6 g/dl (6.4-8.2)
[2021-05-04] MEDS: MELATONIN 5 MG TABLETS PO SCH (22:34)
[2021-05-04] MEDS: THIAMINE HCL 100 MG TABLET (FP) PO SCH (22:35)
[2021-05-05] MEDS ORDERED: BUPRENORPHINE HCL 150 MCG FILM BC ONE ×2 (04:35→17:32)
[2021-05-05] MEDS ORDERED: BUPRENORPHINE HCL 75 MCG FILM BC ONE ×2 (04:35→17:33)
[2021-05-05] MEDS: BUPRENORPHINE HCL 150 MCG, BUPRENORPHINE HCL 75 MCG BC SCH ×2 (05:44→18:01)
[2021-05-05] MEDS: hydrOXYzine PAMOATE 25 MG CAPSULE (FP) PO SCH ×5 (05:44→22:26)
[2021-05-05] MEDS: NICOTINE 14 MG/24 HOURS TOPICAL PATCH TD SCH (10:29)
[2021-05-05] MEDS: PRENATAL VITAMINS W/ FOLIC ACID TABLET (FP) PO SCH (10:29)
[2021-05-05 16:06] LABS: HIV INTERPRETATION NEGATIVE (NEGATIVE)
[2021-05-05] MEDS: diazePAM 5 MG TABLET PO PRN (22:26)
[2021-05-05] MEDS: THIAMINE HCL 100 MG TABLET (FP) PO SCH (22:26)
[2021-05-05] MEDS: MELATONIN 5 MG TABLETS PO SCH (22:27)
[2021-05-06] MEDS ORDERED: BUPRENORPHINE HCL 450 MCG FILM BC SCH (06:00)
[2021-05-06] MEDS: hydrOXYzine PAMOATE 25 MG CAPSULE (FP) PO SCH ×2 (06:09→09:58)
[2021-05-06 08:56] VITALS: BP 126/74; PULSE 81; TEMP 97.1
[2021-05-06] MEDS: diazePAM 5 MG TABLET PO PRN (09:58)
[2021-05-06] MEDS: PRENATAL VITAMINS W/ FOLIC ACID TABLET (FP) PO SCH (09:58)
[2021-05-06] MEDS: NICOTINE 14 MG/24 HOURS TOPICAL PATCH TD SCH (10:01)
[2021-05-07] MEDS ORDERED: BUPRENORPHINE/NALOXONE 4 MG/1 MG FILM PACKET SL SCH (06:00)
[2021-05-08] MEDS ORDERED: BUPRENORPHINE/NALOXONE 8 MG/2 MG FILM PACKET SL ONE (06:00)
== END 2021-05-06 13:13 | disposition left against medical advice (07) | DRG 770 ==
LOC: YASAS 10:42 → Y3N 11:32
PROVIDERS: ADMIT Allergy & Immunology; ATTEND Allergy & Immunology
PROC: HZ2ZZZZ Detoxification Services for Substance Abuse Treatment (ICD-10-PCS; principal; 2021-05-04)
DX: F11.23 Opioid dependence with withdrawal (principal); F13.20 Sedative, hypnotic or anxiolytic dependence, uncomplicated; F10.20 Alcohol dependence, uncomplicated; F12.20 Cannabis dependence, uncomplicated; F17.210 Nicotine dependence, cigarettes, uncomplicated; F19.280 Other psychoactive substance dependence with psychoactive substance-induced anxiety disorder; F19.282 Other psychoactive substance dependence with psychoactive substance-induced sleep disorder; F31.9 Bipolar disorder, unspecified; F41.9 Anxiety disorder, unspecified; F43.10 Post-traumatic stress disorder, unspecified; F80.81 Childhood onset fluency disorder; J45.20 Mild intermittent asthma, uncomplicated
CPT/HCPCS: 36415; 80053; 85027; 86780; 87389; C9803; U0003; U0005

== ENCOUNTER 2021-06-01 16:18 | Emergency (ER) | payer OTHER ==
[2021-06-01 17:00] VITALS: BP 113/75; PULSE 79; TEMP 98; BMI 35.4
[2021-06-01] MEDS ORDERED: KETOROLAC TROMETHAMINE 30 MG/1 ML VIAL IM ONE (17:39)
[2021-06-01] MEDS ORDERED: LIDOCAINE 5% TOPICAL PATCH TP ONE (17:40)
[2021-06-01] MEDS ORDERED: LIDOCAINE 5% TOPICAL PATCH ONE (18:12)
[2021-06-01] MEDS ORDERED: KETOROLAC TROMETHAMINE 30 MG/1 ML VIAL ONE (18:12)
[2021-06-01] MEDS ORDERED: LIDOCAINE PATCH REMOVAL MC SCH (22:00)
== END 2021-06-01 18:45 | disposition home or self-care (01) ==
LOC: JERFT 16:18
PROC: 3E023GC Introduction of Other Therapeutic Substance into Muscle, Percutaneous Approach (ICD-10-PCS; principal; 2021-06-01)
DX: S93.401A Sprain of unspecified ligament of right ankle, initial encounter (principal); W00.9XXA Unspecified fall due to ice and snow, initial encounter
CPT/HCPCS: 73610-TC-RT-FY; 73630-TC-RT-FY; 96372; 99284-25

== ENCOUNTER 2021-06-25 15:16 | Inpatient (IN) | payer OTHER ==
[2021-06-25 16:08] VITALS: BMI 35.9
[2021-06-25] MEDS ORDERED: BISMUTH SUBSALICYLATE 524 MG/30 ML PO PRN (18:31)
[2021-06-25] MEDS ORDERED: MAGNESIUM HYDROX 2400MG/30ML ORAL SUSPENSION 30 ML CUP PO PRN (18:31)
[2021-06-25] MEDS ORDERED: methaDONE HCL 10 MG TABLET (FOR DETOX USE ONLY) PO ONE (18:31)
[2021-06-25] MEDS ORDERED: LOPERAMIDE HCL 2 MG CAPSULE PO PRN (18:31)
[2021-06-25] MEDS ORDERED: IBUPROFEN 400 MG TABLET (FP) PO PRN (18:31)
[2021-06-25] MEDS ORDERED: MAGNESIUM CITRATE 300 ML BOTTLE PO PRN (18:31)
[2021-06-25] MEDS ORDERED: MAG HYDROX/AL HYDROX/SIMETH 30 ML UNIT-DOSE CUP PO PRN (18:31)
[2021-06-25] MEDS ORDERED: cloNIDine HCL 0.1 MG TABLET PO PRN (18:31)
[2021-06-25] MEDS ORDERED: NICOTINE 10 MG CARTRIDGE (INHALER) IH PRN (18:31)
[2021-06-25] MEDS ORDERED: NICOTINE POLACRILEX 4 MG GUM BUC PRN (18:31)
[2021-06-25] MEDS ORDERED: diazePAM 5 MG TABLET PO PRN (18:31)
[2021-06-25] MEDS ORDERED: ONDANSETRON *ODT* 4 MG TABLET SL PRN (18:31)
[2021-06-25] MEDS ORDERED: ACETAMINOPHEN 325 MG TABLET (FP) PO PRN ×2 (18:31)
[2021-06-25] MEDS ORDERED: MENTHOL/PHENOL 1 EACH UD MM PRN (18:31)
[2021-06-25] MEDS ORDERED: ALBUTEROL SO4 HFA INHALER IH PRN (18:37)
[2021-06-25] MEDS: PRENATAL VITAMINS W/ FOLIC ACID TABLET (FP) PO SCH (20:17)
[2021-06-25] MEDS: hydrOXYzine PAMOATE 25 MG CAPSULE (FP) PO SCH (22:18)
[2021-06-25] MEDS: THIAMINE HCL 100 MG TABLET (FP) PO SCH (22:19)
[2021-06-25] MEDS: diazePAM 5 MG TABLET PO SCH (22:19)
[2021-06-25] MEDS: MELATONIN 5 MG TABLETS PO SCH (22:20)
[2021-06-25] MEDS: METHOCARBAMOL 500 MG TABLET PO PRN (22:20)
[2021-06-26] MEDS: hydrOXYzine PAMOATE 25 MG CAPSULE (FP) PO SCH ×5 (05:39→22:29)
[2021-06-26] MEDS: diazePAM 5 MG TABLET PO SCH ×4 (05:39→22:28)
[2021-06-26] MEDS: METHOCARBAMOL 500 MG TABLET PO PRN ×2 (05:40→13:42)
[2021-06-26] MEDS ORDERED: methaDONE HCL 10 MG TABLET (FOR DETOX USE ONLY) ONE (09:25)
[2021-06-26] MEDS: PRENATAL VITAMINS W/ FOLIC ACID TABLET (FP) PO SCH (10:33)
[2021-06-26] MEDS: NICOTINE 14 MG/24 HOURS TOPICAL PATCH TD SCH (10:33)
[2021-06-26 11:43] LABS: BLOOD UREA NITROGEN 10.4 mg/dL (7-18); CALCIUM 9.1 mg/dL (8.5-10.1)
[2021-06-26 11:44] LABS: ALBUMIN 3.5 g/dl (3.4-5.0); HEMATOCRIT 38.9 % (35.4-49); HEMOGLOBIN 12.6 GM/dL (11.7-16.9); MCH 24.1 pg (25.7-33.7); MCHC 32.4 g/dl (32.0-35.9); MEAN CELL VOLUME 74.4 fl (80-96); MEAN PLT VOLUME 8.1 fl (7.5-11.1); PLATELET COUNT 332 10^3/uL (134-434); RBC 5.24 M/mm3 (4.00-5.60); RDW 16.7 % (11.9-15.9); WHITE BLOOD COUNT 5.9 K/mm3 (4.0-10.0)
[2021-06-26 11:47] LABS: CREATININE 0.8 mg/dL (0.55-1.3)
[2021-06-26 11:48] LABS: BILIRUBIN,TOTAL 0.7 mg/dL (0.2-1); TOT PROT 6.9 g/dl (6.4-8.2)
[2021-06-26] MEDS ORDERED: FLU VACC QS2021-22(6MOS UP)/PF 60 MCG/0.5 ML SYRINGE IM ONE (12:00)
[2021-06-26] MEDS: THIAMINE HCL 100 MG TABLET (FP) PO SCH (22:28)
[2021-06-26] MEDS: MELATONIN 5 MG TABLETS PO SCH (22:29)
[2021-06-27] MEDS: hydrOXYzine PAMOATE 25 MG CAPSULE (FP) PO SCH ×5 (05:44→22:12)
[2021-06-27] MEDS: METHOCARBAMOL 500 MG TABLET PO PRN ×2 (05:45→10:37)
[2021-06-27] MEDS: diazePAM 5 MG TABLET PO SCH ×3 (05:45→22:12)
[2021-06-27] MEDS ORDERED: methaDONE HCL 10 MG TABLET (FOR DETOX USE ONLY) PO ONE (10:00)
[2021-06-27] MEDS: PRENATAL VITAMINS W/ FOLIC ACID TABLET (FP) PO SCH (10:37)
[2021-06-27] MEDS: NICOTINE 14 MG/24 HOURS TOPICAL PATCH TD SCH (10:38)
[2021-06-27] MEDS: THIAMINE HCL 100 MG TABLET (FP) PO SCH (22:12)
[2021-06-27] MEDS: MELATONIN 5 MG TABLETS PO SCH (22:12)
[2021-06-28] MEDS ORDERED: diazePAM 5 MG TABLET PO SCH (06:00)
[2021-06-28] MEDS: hydrOXYzine PAMOATE 25 MG CAPSULE (FP) PO SCH ×3 (07:07→14:39)
[2021-06-28] MEDS ORDERED: methaDONE HCL 10 MG TABLET (FOR DETOX USE ONLY) ONE (09:23)
[2021-06-28] MEDS: PRENATAL VITAMINS W/ FOLIC ACID TABLET (FP) PO SCH (10:19)
[2021-06-28] MEDS: NICOTINE 14 MG/24 HOURS TOPICAL PATCH TD SCH (10:21)
[2021-06-28 17:53] VITALS: BP 122/74; PULSE 105; TEMP 97.1
[2021-06-29] MEDS ORDERED: diazePAM 5 MG TABLET PO ONE (06:00)
[2021-06-29 06:06] LABS: SARS-CoV-2 NAA Not Detected (Not Detected)
[2021-06-29] MEDS ORDERED: methaDONE HCL 10 MG TABLET (FOR DETOX USE ONLY) PO ONE (10:00)
== END 2021-06-28 17:51 | disposition home or self-care (01) | DRG 773 ==
LOC: YASAS 15:16 → Y6N 19:43
PROVIDERS: ADMIT Allergy & Immunology; ATTEND Allergy & Immunology
PROC: HZ2ZZZZ Detoxification Services for Substance Abuse Treatment (ICD-10-PCS; principal; 2021-06-25)
DX: F11.23 Opioid dependence with withdrawal (principal); F10.230 Alcohol dependence with withdrawal, uncomplicated; F13.20 Sedative, hypnotic or anxiolytic dependence, uncomplicated; F12.20 Cannabis dependence, uncomplicated; F17.210 Nicotine dependence, cigarettes, uncomplicated; F19.280 Other psychoactive substance dependence with psychoactive substance-induced anxiety disorder; F31.9 Bipolar disorder, unspecified; F43.10 Post-traumatic stress disorder, unspecified; J45.20 Mild intermittent asthma, uncomplicated; Z62.810 Personal history of physical and sexual abuse in childhood; Z56.0 Unemployment, unspecified
CPT/HCPCS: 36415; 80053; 80164; 85027; 86780; 90686; C9803-CS; G0008; U0003; U0005